=== PATIENT | female | born 1940 | race Asian ===

== ENCOUNTER → 2017-01-13 | Outpatient (CLI) | payer OTHER ==
[~2017-01-13] MED LIST: ASPIR-LOW81 M1 PO; COZAAR25 MG; LORATADINE10 M2 PO; SIMVASTATIN5 M1
== END | disposition home or self-care (01) ==
LOC: MA 12:38
PROC: BH02ZZZ Plain Radiography of Bilateral Breasts (ICD-10-PCS; principal; 2017-01-13)
DX: Z12.31 Encounter for screening mammogram for malignant neoplasm of breast (principal)
CPT/HCPCS: G0206

== ENCOUNTER → 2017-07-15 | Outpatient (CLI) | payer OTHER | END | disposition home or self-care (01) | LOC: MA 12:50 | PROC: BH02ZZZ Plain Radiography of Bilateral Breasts (ICD-10-PCS; principal; 2017-07-15) | DX: D05.10 Intraductal carcinoma in situ of unspecified breast (principal) | CPT/HCPCS: G0204 ==

== ENCOUNTER → 2018-01-14 | Outpatient (CLI) | payer OTHER | END | disposition home or self-care (01) | LOC: MA 13:01 | PROC: BH02ZZZ Plain Radiography of Bilateral Breasts (ICD-10-PCS; principal; 2018-01-14) | DX: D05.10 Intraductal carcinoma in situ of unspecified breast (principal); Z79.810 Long term (current) use of selective estrogen receptor modulators (SERMs) | CPT/HCPCS: 77066 ==